=== PATIENT | male | born 1990 | race Hispanic/Latino ===

== ENCOUNTER 2018-10-06 05:03 | Emergency (ER) | payer OTHER ==
[2018-10-06] MEDS ORDERED: ACETAMINOPHEN EXTRA STRENGTH 500 MG TABLET ONE (05:39)
[2018-10-06] MEDS ORDERED: IBUPROFEN 600 MG TABLET ONE (05:39)
== END 2018-10-06 06:40 ==
LOC: EDH 05:03
DX: J10.1 Influenza due to other identified influenza virus with other respiratory manifestations (principal)
CPT/HCPCS: 87804